=== PATIENT | male | born 1995 | race Caucasian/White ===

== ENCOUNTER 2016-11-26 11:57 | Emergency (ER) | payer BC ==
[2016-11-26 12:22] VITALS: BP 139/74
--- NOTE | 2016-11-26 12:41 | UC ---
UC General HPI - HPI Summary HPI Summary: patient has had 1 day of thraot pain, and general fatigue and body aches. denies fever, upset stomach present as well. - History of Current Complaint Chief Complaint: UCGeneralIllness Stated Complaint: SORE THROAT BODYACHES Time Seen by Provider: 11/26/16 12:24 Hx Obtained From: Patient Onset/Duration: Sudden Onset, Lasting Days - 2 Timing: Constant Onset Severity: Mild Current Severity: Moderate Associated Signs & Symptoms: Positive: Headache - Allergy/Home Medications Allergies/Adverse Reactions: Allergies Allergy/AdvReac Type Severity Reaction Status Date / Time Amoxicillin Allergy See Comment Verified 11/26/16 12:23 Lactose Intolerance (GI) Allergy GI Upset Verified 11/26/16 12:23 bees Allergy Hives Uncoded 11/26/16 12:23 PMH/Surg Hx/FS Hx/Imm Hx Previously Healthy: Yes Endocrine History: Other - obesity Other Endocrine History: obesity - Surgical History Surgical History: Yes Surgery Procedure, Year, and Place: T&A, 1999 - Family History Known Family History: Positive: None Negative: Cardiac Disease, Hypertension - Social History Alcohol Use: Weekly Substance Use Type: None Smoking Status (MU): Heavy Every Day Tobacco Smoker Type: Cigarettes, eCigarettes Amount Used/How Often: 1/4-1/2 ppd and ecig several times each day Length of Time of Smoking/Using Tobacco: started at age 17 Have You Smoked in the Last Year: Yes Household Exposure Type: Cigarettes - Immunization History Most Recent Influenza Vaccination: Not the 2014/2015 Season Vaccination Up to Date: Yes Review of Systems Constitutional: Fatigue Skin: Negative Eyes: Negative ENT: Sore Throat Respiratory: Negative Cardiovascular: Negative Gastrointestinal: Other - Upset stomach Genitourinary: Negative Motor: Negative Musculoskeletal: Myalgia Neurological: Headache Psychological: Negative All Other Systems Reviewed And Are Negative: Yes Physical Exam Triage Information Reviewed: Yes Appearance: Well-Nourished, Ill-Appearing, Pain Distress Vital Signs: Initial Vital Signs Temp 99.2 F 11/26/16 12:17 Pulse 108 11/26/16 12:17 Resp 16 11/26/16 12:17 BP 139/74 11/26/16 12:17 Pulse Ox 100 11/26/16 12:17 Vital Signs Reviewed: Yes Eye Exam: Normal Eyes: Positive: Conjunctiva Clear ENT: Positive: Pharyngeal erythema, Tonsillar swelling Dental Exam: Normal Neck exam: Normal Neck: Positive: Supple, Nontender, Enlarged Nodes @ - bilteral tonsillar Respiratory Exam: Normal Respiratory: Positive: Chest non-tender, Lungs clear, Normal breath sounds Cardiovascular Exam: Normal Cardiovascular: Positive: RRR, No Murmur, Pulses Normal Abdominal Exam: Normal Abdomen Description: Positive: Nontender, No Organomegaly, Soft Bowel Sounds: Positive: Present Musculoskeletal Exam: Normal Musculoskeletal: Positive: Strength Intact, ROM Intact, No Edema Neurological Exam: Normal Neurological: Positive: Alert, Muscle Tone Normal Psychological Exam: Normal Skin Exam: Normal - +3, tonsillar exudate noted Course/Dx - Course Course Of Treatment: hx obtained, exam performed, meds reviewed, treated for tonsillitis - Differential Dx - Multi-Symptom Provider Diagnoses: tonsillitis, viral. myalgia Discharge - Discharge Plan Condition: Stable Disposition: HOME Patient Education Materials: Tonsillitis (ED) Additional Instructions: 1. take the prednisone in the morning. 2. Ibuprofen for pain and fever 3. Increase fluid intake and preform salt water gargles to reduce the irritation on the throat 4. You need lots of rest to let the body heal. 5. Follow up with any increase in symtpoms
== END 2016-11-26 12:56 | disposition home or self-care (01) ==
LOC: UCCORT 11:57
DX: Z72.0 Tobacco use (principal); J03.80 Acute tonsillitis due to other specified organisms; B97.89 Other viral agents as the cause of diseases classified elsewhere; M79.1 Myalgia
CPT/HCPCS: 87651; 99212; G0463

== ENCOUNTER 2017-01-05 13:31 | Emergency (ER) | payer BC ==
[2017-01-05 14:46] VITALS: BP 100/52
--- NOTE | 2017-01-05 15:17 | UC ---
Throat Pain/Nasal Jerome HPI - HPI Summary HPI Summary: Patient has had sore throat, and n[place]ase[place] for the past few days. some muscle aches as well. - History of Current Complaint Chief Complaint: UCRespiratory Stated Complaint: SORE THROAT/BODY ACHES Time Seen by Provider: 01/05/17 15:01 Hx Obtained From: Patient Onset/Duration: Sudden Onset, Lasting Days Severity: Moderate Cough: None Associated Signs & Symptoms: Positive: Hoarseness - Allergies/Home Medications Allergies/Adverse Reactions: Allergies Allergy/AdvReac Type Severity Reaction Status Date / Time Amoxicillin Allergy See Comment Verified 01/05/17 14:36 Lactose Intolerance (GI) Allergy GI Upset Verified 01/05/17 14:36 bees Allergy Hives Uncoded 01/05/17 14:36 Home Medications: Home Medications Acetaminophen W/ Dm [Daytime Cold Medicine] 1 liq PO PRN 01/05/17 [History] PMH/Surg Hx/FS Hx/Imm Hx Previously Healthy: Yes - Surgical History Surgical History: Yes Surgery Procedure, Year, and Place: &A, 1999 - Family History Known Family History: Positive: None Negative: Cardiac Disease, Hypertension - Social History Alcohol Use: Occasionally Substance Use Type: Marijuana Smoking Status (MU): Current Some Day Smoker Type: eCigarettes Amount Used/How Often: 1/4-1/2 ppd and ecig several times each day Length of Time of Smoking/Using Tobacco: started at age 17 Have You Smoked in the Last Year: Yes Household Exposure Type: Cigarettes - Immunization History Most Recent Influenza Vaccination: Not the 2014/2015 Season Vaccination Up to Date: Yes Review of Systems Constitutional: Negative Skin: Negative Eyes: Negative ENT: Sore Throat, Ear Ache Respiratory: Cough Cardiovascular: Negative Gastrointestinal: Negative Genitourinary: Negative Motor: Negative Neurovascular: Negative Musculoskeletal: Myalgia Neurological: Headache Psychological: Negative All Other Systems Reviewed And Are Negative: Yes Physical Exam Triage Information Reviewed: Yes Appearance: Well-Nourished, Ill-Appearing, Pain Distress Vital Signs: Initial Vital Signs Temp 98.5 F 01/05/17 14:37 Pulse 85 01/05/17 14:37 Resp 16 01/05/17 14:37 BP 100/52 01/05/17 14:37 Pulse Ox 99 01/05/17 14:37 Vital Signs Reviewed: Yes Eye Exam: Normal ENT: Positive: Hearing grossly normal, Pharynx normal, TMs normal Dental Exam: Normal Neck exam: Normal Neck: Positive: Supple, Nontender, No Lymphadenopathy Respiratory Exam: Normal Respiratory: Positive: Chest non-tender, Lungs clear, Normal breath sounds Cardiovascular Exam: Normal Cardiovascular: Positive: RRR, No Murmur, Pulses Normal Abdominal Exam: Normal Abdomen Description: Positive: Nontender, No Organomegaly, Soft Bowel Sounds: Positive: Present Musculoskeletal Exam: Normal Musculoskeletal: Positive: Strength Intact, ROM Intact, No Edema Neurological Exam: Normal Neurological: Positive: Alert, Muscle Tone Normal Psychological Exam: Normal Skin Exam: Normal Throat Pain/Nasal Course/Dx - Course Course Of Treatment: hx obtained, exam performed ,meds reviewed, rapid strep negative. treated for viral pharyngitis - Differential Dx/Diagnosis Differential Diagnosis/HQI/PQRI: Influenza, Laryngitis, Pharyngitis, Sinusitis Provider Diagnoses: pharyngitis. nausea Discharge - Discharge Plan Condition: Stable Disposition: HOME Prescriptions: predniSONE TAB* [Deltasone TAB*] 40 mg PO DAILY #14 tab Patient Education Materials: Pharyngitis (ED) Additional Instructions: 1. take the medication as prescribed. 2. Increasd fluid intake and get plenty of rest.
== END 2017-01-05 15:30 | disposition home or self-care (01) ==
LOC: UCCORT 13:31
DX: J02.9 Acute pharyngitis, unspecified (principal); R11.0 Nausea; Z88.0 Allergy status to penicillin; Z91.030 Bee allergy status; F12.90 Cannabis use, unspecified, uncomplicated; Z72.0 Tobacco use
CPT/HCPCS: 87651; 99212; G0463

== ENCOUNTER 2017-06-21 09:13 | Emergency (ER) | payer BC ==
[2017-06-21 10:12] VITALS: BP 127/78
--- NOTE | 2017-06-21 11:44 | UC ---
FLU HPI - HPI Summary HPI Summary: Pt c/o generalized malaise, photosensitivity, YAO, PND, cough X 3 days. Pt denies hx of migraines. - History of Current Complaint Chief Complaint: UCGeneralIllness Stated Complaint: FLU SYMPTOMS Time Seen by Provider: 06/21/17 11:16 Hx Obtained From: Patient Onset/Duration: Gradual Onset, Lasting Days Severity Currently: Mild Severity Initially: Mild Pain Intensity: 3 Associated Signs & Symptoms: Positive: Myalgia, Cough, Headache Related Hx: Possible Flu/Infectious Exposure - Allergy/Home Medications Allergies/Adverse Reactions: Allergies Allergy/AdvReac Type Severity Reaction Status Date / Time amoxicillin Allergy Difficulty Verified 06/21/17 10:08 Breathing/Wheezing bee pollen Allergy Hives Verified 06/21/17 10:08 bee venom protein (honey bee) Allergy Hives Verified 06/21/17 10:08 lactose Allergy GI Upset Verified 06/21/17 10:08 Home Medications: Home Medications Methylphenidate ER TAB* [Concerta ER TAB*] 36 mg PO DAILY 06/21/17 [History Confirmed 06/21/17] PMH/Surg Hx/FS Hx/Imm Hx Previously Healthy: Yes - Surgical History Surgical History: Yes Surgery Procedure, Year, and Place: T&A, 1999 - Family History Known Family History: Positive: None Negative: Cardiac Disease, Hypertension - Social History Occupation: Employed Part-time, Student Lives: Dormitory/Roommates Alcohol Use: Occasionally Substance Use Type: None Smoking Status (MU): Current Some Day Smoker Type: eCigarettes Amount Used/How Often: 1/4-1/2 ppd and ecig several times each day Length of Time of Smoking/Using Tobacco: started at age 17 Have You Smoked in the Last Year: Yes Household Exposure Type: Cigarettes - Immunization History Most Recent Influenza Vaccination: Not the Season Vaccination Up to Date: Yes Review of Systems Constitutional: Fatigue Skin: Negative Eyes: Photophobia ENT: Sinus Congestion Respiratory: Cough Cardiovascular: Negative Gastrointestinal: Negative Genitourinary: Negative Motor: Negative Neurovascular: Negative Musculoskeletal: Myalgia Neurological: Headache Psychological: Negative Is Patient Immunocompromised?: No All Other Systems Reviewed And Are Negative: Yes Physical Exam Triage Information Reviewed: Yes Appearance: Well-Appearing Vital Signs: Initial Vital Signs Temp 99 F 06/21/17 10:02 Pulse 82 06/21/17 10:02 Resp 16 06/21/17 10:02 BP 127/78 06/21/17 10:02 Pulse Ox 98 06/21/17 10:02 Vital Signs Reviewed: Yes Eye Exam: Normal ENT Exam: Normal Dental Exam: Normal Neck exam: Normal Respiratory Exam: Normal Cardiovascular Exam: Normal Musculoskeletal Exam: Normal Neurological Exam: Normal Psychological Exam: Normal Skin Exam: Normal Diagnostics - Laboratory Diagnostic Studies Completed/Ordered: RApid flu negative Flu Course/Dx - Differential Dx/Diagnosis Differential Diagnosis/HQI/PQRI: Bronchitis, Influenza, Upper Respiratory Infection Provider Diagnoses: viral syndrome. YAO Discharge - Discharge Plan Condition: Stable Disposition: HOME Patient Education Materials: Viral Syndrome (ED) Referrals: [facility] [Outside] - If Needed No Primary Care Phys,NOPCP [Primary Care Provider] -
== END 2017-06-21 12:10 | disposition home or self-care (01) ==
LOC: UCCORT 09:13
DX: B34.9 Viral infection, unspecified (principal); R51 Headache; F17.210 Nicotine dependence, cigarettes, uncomplicated
CPT/HCPCS: 87502; 99211; G0463

== ENCOUNTER 2019-03-16 16:10 | Emergency (ER) | payer BC ==
[2019-03-16 16:36] VITALS: BP 137/82
--- NOTE | 2019-03-16 17:15 | UC ---
Eye Complaint HPI - HPI Summary HPI Summary: 24 year old male with no PMH presents with right eye swelling, drainage, redness. x 2-3 days. + purulent drainage this AM with "eye swollen shut"' NO FB sensation, no vision changes. Notes past few days had cold symptoms with fever ~ 3 days ago, none since. no other complaints other than eye currently. - History of Current Complaint Chief Complaint: UCGeneralIllness Stated Complaint: ST,RT EYE COMPLAINT Time Seen by Provider: 03/16/19 17:13 Hx Obtained From: Patient Onset/Duration: Sudden Onset, Lasting Days Timing: Constant Severity Initially: Mild Severity Currently: Mild Pain Intensity: 1 Pain Scale Used: 0-10 Numeric Location of Injury: Conjunctiva Aggravating Factor(s): Nothing Alleviating Factor(s): Nothing Associated Signs And Symptoms: Positive: Drainage (Purulent). Negative: Vision Impairment Bilateral, Vision Impairment Right, Vision Impairment Left, Fever - Allergies/Home Medications Allergies/Adverse Reactions: Allergies Allergy/AdvReac Type Severity Reaction Status Date / Time Penicillins Allergy Unknown Rash Verified 03/18/19 11:31 amoxicillin Allergy Difficulty Verified 03/18/19 11:31 Breathing/Wheezing bee pollen Allergy Hives Verified 03/18/19 11:31 bee venom protein (honey bee) Allergy Hives Verified 03/18/19 11:31 lactose Allergy GI Upset Verified 03/18/19 11:31 Home Medications: Home Medications D-Methorphan/PE/Acetaminophen [Vicks Dayquil Liquicaps] 1 cap PO Q6HR PRN [History] PMH/Surg Hx/FS Hx/Imm Hx Previously Healthy: Yes - Surgical History Surgical History: Yes Surgery Procedure, Year, and Place: T&A, 1999 - Family History Known Family History: Positive: None, Non-Contributory Negative: Cardiac Disease, Hypertension - Social History Alcohol Use: Occasionally Substance Use Type: Marijuana Substance Use Comment - Amount & Last Used: OCCASIONAL Smoking Status (MU): Current Some Day Smoker Type: eCigarettes Amount Used/How Often: 1PER DAY Length of Time of Smoking/Using Tobacco: started at age 17 Have You Smoked in the Last Year: Yes Household Exposure Type: Cigarettes - Immunization History Most Recent Influenza Vaccination: Not the Season Vaccination Up to Date: Yes Review of Systems All Other Systems Reviewed And Are Negative: Yes Constitutional: Negative: Fever, Chills, Fatigue Eyes: Positive: Drainage, Eye Redness. Negative: Blurred Vision, Photophobia ENT: Positive: Negative Psychological: Positive: Negative Is Patient Immunocompromised?: No Physical Exam Triage Information Reviewed: Yes Appearance: Well-Appearing, No Pain Distress, Well-Nourished Vital Signs: Initial Vital Signs Temp 97.5 F 03/16/19 16:27 Pulse 79 03/16/19 16:27 Resp 16 03/16/19 16:27 BP 137/82 03/16/19 16:27 Pulse Ox 99 03/16/19 16:27 Vital Signs Reviewed: Yes Eyes: Positive: Conjunctiva Inflamed, Discharge - right eye with mild purulent discharge, full EMOI, PERRLA without pain, no TTP periorbital ENT: Positive: Hearing grossly normal, Pharynx normal, TMs normal, Uvula midline. Negative: Tonsillar swelling, Tonsillar exudate, Sinus tenderness Neck: Positive: Supple, Nontender, No Lymphadenopathy Psychological Exam: Normal Skin Exam: Normal Skin: Positive: Other - no edema, no erythema. Eye Complaint Course/Dx - Course Course Of Treatment: Conjunctivitis: - Ciprofloxacin eye drops: one drop in right eye while awake every 4 hours until symptom free x 24 hours - Good hygiene- wash hands after touching eye, change pillow case/ washcloth frequently. - Motrin /tylenol as needed for pain - Return with decreased vision, increased symptoms, pain - likely viral upper respiratory tract infections. Treat symptoms with over the counter medications - Differential Dx/Diagnosis Differential Diagnosis/HQI/PQRI: Conjunctivitis Provider Diagnosis: Conjunctivitis Discharge ED - Sign-Out/Discharge Documenting (check all that apply): Patient Departure All imaging exams completed and their final reports reviewed: No Studies - Discharge Plan Condition: Good Disposition: HOME Prescriptions: Ciprofloxacin 0.3% OPTH.TIMO* [Cipro 0.3% Opth*] 1 drop LEFT EYE Q4HR #1 btl Patient Education Materials: Conjunctivitis (ED) Referrals: No Primary Care Phys,NOPCP [Primary Care Provider] - Additional Instructions: Conjunctivitis: - Ciprofloxacin eye drops: one drop in right eye while awake every 4 hours until symptom free x 24 hours - Good hygiene- wash hands after touching eye, change pillow case/ washcloth frequently. - Motrin /tylenol as needed for pain - Return with decreased vision, increased symptoms, pain - likely viral upper respiratory tract infections. Treat symptoms with over the counter medications - Billing Disposition and Condition Condition: GOOD Disposition: Home
== END 2019-03-16 17:48 | disposition home or self-care (01) ==
LOC: UCCORT 16:10
DX: H10.31 Unspecified acute conjunctivitis, right eye (principal); Z88.0 Allergy status to penicillin; Z91.030 Bee allergy status; Z91.011 Allergy to milk products; F17.290 Nicotine dependence, other tobacco product, uncomplicated
CPT/HCPCS: 99212; G0463

== ENCOUNTER 2019-03-18 11:06 | Emergency (ER) | payer BC ==
[2019-03-18 11:31] VITALS: BP 148/76
--- NOTE | 2019-03-18 11:59 | UC ---
Throat Pain/Nasal Jerome HPI - HPI Summary HPI Summary: 24-year-old male presents with complaints of progressively worsening sore throat , nasal congestion, sinus pressure, and occasionally productive cough with some blood-tinged sputum. States approximately one week ago his symptoms started with general malaise, chills, and body aches. The next day developed a sore throat. States 2 days later he started getting the nasal congestion and sinus pressure. He was then evaluated in this facility on 03/16/2019 and was treated for conjunctivitis and recommended symptomatic treatment for his other symptoms. Denies fever, chills, ear pain, dysphagia, chest pain, or shortness of breath. - History of Current Complaint Chief Complaint: UCGeneralIllness Stated Complaint: ST,COUGH Time Seen by Provider: 03/18/19 11:40 Hx Obtained From: Patient Pain Intensity: 6 - Allergies/Home Medications Allergies/Adverse Reactions: Allergies Allergy/AdvReac Type Severity Reaction Status Date / Time Penicillins Allergy Unknown Rash Verified 03/18/19 11:31 amoxicillin Allergy Difficulty Verified 03/18/19 11:31 Breathing/Wheezing bee pollen Allergy Hives Verified 03/18/19 11:31 bee venom protein (honey bee) Allergy Hives Verified 03/18/19 11:31 lactose Allergy GI Upset Verified 03/18/19 11:31 PMH/Surg Hx/FS Hx/Imm Hx Previously Healthy: Yes - Denies significant PMH - Surgical History Surgical History: Yes Surgery Procedure, Year, and Place: T&A, 1999 - Family History Known Family History: Positive: Non-Contributory - Social History Occupation: Student Lives: Dormitory/Roommates Alcohol Use: Occasionally Substance Use Type: Marijuana Substance Use Comment - Amount & Last Used: OCCASIONAL Smoking Status (MU): Current Some Day Smoker Type: eCigarettes Amount Used/How Often: 1PER DAY Length of Time of Smoking/Using Tobacco: started at age 17 Have You Smoked in the Last Year: Yes Household Exposure Type: Cigarettes - Immunization History Most Recent Influenza Vaccination: Not the 2015/2016 Season Vaccination Up to Date: Yes Review of Systems All Other Systems Reviewed And Are Negative: Yes Constitutional: Negative: Fever, Chills Skin: Negative: Rash Eyes: Negative: Drainage, Eye Redness ENT: Positive: Sore Throat, Nasal Discharge, Sinus Congestion, Sinus Pain/ Tenderness. Negative: Ear Ache Respiratory: Positive: Cough. Negative: Negative Cardiovascular: Negative: Chest Pain Gastrointestinal: Positive: Negative Genitourinary: Positive: Negative Musculoskeletal: Positive: Negative Neurological: Positive: Negative Is Patient Immunocompromised?: No Physical Exam - Summary Physical Exam Summary: GENERAL APPEARANCE: Well developed, well nourished, alert and cooperative, and appears to be in no acute distress. EYES: Conjunctiva clear. No drainage. EARS: External auditory canals and tympanic membranes clear, hearing grossly intact. NOSE: Moderate nasal congestion with mucosal erythema and edema. No nasal discharge. Maxillary sinus tenderness. THROAT: Pharyngeal erythema. Tonsils surgically absent. Uvula midline. NECK: Neck supple, non-tender without lymphadenopathy. CARDIAC: Normal S1 and S2. No S3, S4 or murmurs. Rhythm is regular. There is no peripheral edema, cyanosis or pallor. Extremities are warm and well perfused. Capillary refill is less than 2 seconds. Peripheral pulses intact. LUNGS: Clear to auscultation without rales, rhonchi, wheezing or diminished breath sounds. Dry nonproductive cough. ABDOMEN: Positive bowel sounds. Soft, nondistended, nontender. No guarding or rebound. No masses or hepatosplenomegally. MUSKULOSKELETAL: ROM intact to all extremities. No joint erythema or tenderness. Normal muscular development. Normal gait. SKIN: Skin normal color, texture and turgor with no lesions or eruptions. Triage Information Reviewed: Yes Vital Signs: Initial Vital Signs Temp 98.2 F 03/18/19 11:28 Pulse 72 03/18/19 11:28 Resp 18 03/18/19 11:28 BP 148/76 03/18/19 11:28 Pulse Ox 100 03/18/19 11:28 Vital Signs Reviewed: Yes Throat Pain/Nasal Course/Dx - Course Course Of Treatment: 24-year-old male presents with complaints of progressively worsening sore throat , nasal congestion, sinus pressure, and occasionally productive cough with some blood-tinged sputum. States approximately one week ago his symptoms started with general malaise, chills, and body aches. The next day developed a sore throat. States 2 days later he started getting the nasal congestion and sinus pressure. He was then evaluated in this facility on 03/16/2019 and was treated for conjunctivitis and recommended symptomatic treatment for his other symptoms. Denies fever, chills, ear pain, dysphagia, chest pain, or shortness of breath. Afebrile. Hypertensive otherwise vital signs stable. Patient had moderate nasal congestion with mucosal erythema and edema, maxillary sinus tenderness, pharyngeal erythema, surgically absent tonsils, no cervical lymphadenopathy, clear bilateral breath sounds, dry nonproductive cough, and otherwise unremarkable exam. Rapid strep test was negative. I discussed with the patient that with his progressively worsening symptoms will treat him for a sinus infection with secondary bacterial infection with doxycycline 100 mg twice a day 7 days as well as recommend symptomatic treatment at this time. He is to follow-up with his primary care provider in 5-7 days if symptoms are not improving. Anticipatory guidance and warning signs reviewed with the patient. Verbalizes understanding and agrees with plan of care. - Differential Dx/Diagnosis Differential Diagnosis/HQI/PQRI: Mononucleosis, Pharyngitis, Sinusitis, Tonsillitis, URI Provider Diagnosis: Acute sinusitis, Postnasal drip, Pharyngitis Discharge ED - Sign-Out/Discharge Documenting (check all that apply): Patient Departure All imaging exams completed and their final reports reviewed: No Studies - Discharge Plan Condition: Stable Disposition: HOME Prescriptions: Doxycycline Hyclate 100 mg PO BID #14 tablet Fluticasone NASAL SPRAY 50MCG* [Flonase NASAL SPRAY 50MCG*] 2 spray BOTH NARES DAILY #1 btl Patient Education Materials: Sinusitis (ED) Referrals: No Primary Care Phys,NOPCP [Primary Care Provider] - Additional Instructions: The rapid strep test performed in the clinic today was negative. With the progressively worsening symptoms we will start you on an antibiotic for a likely bacterial sinus infection. Start doxycycline 100 mg twice a day for 7 days. Use a saline rinse kit such as Neti Pot or NeilMed at least twice a day to help thin secretions and promote drainage of the sinuses. Use fluticasone (Flonase) nasal spray 2 sprays each nostril once daily. Take over the counter acetaminophen (Tylenol) or ibuprofen (Advil, Motrin) according to directions as needed for pain or fever. Use salt water gargles several times a day if you have a sore throat. You may also use Chloraseptic spray or Cepacol lonzenges according to directions which contain a numbing medication and can provide some temporary relief from your sore throat. Follow up with your primary care provider in 5-7 days if symptoms persist. Seek immediate medical attention in the emergency room if you have fever greater than 100.5 F despite taking acetaminophen or ibuprofen, have chest pain , difficulty breathing, are unable to swallow, or have any worsening of symptoms. - Billing Disposition and Condition Condition: STABLE Disposition: Home
== END 2019-03-18 12:28 | disposition home or self-care (01) ==
LOC: UCCORT 11:06
DX: J01.90 Acute sinusitis, unspecified (principal); R09.82 Postnasal drip; J02.9 Acute pharyngitis, unspecified; F17.210 Nicotine dependence, cigarettes, uncomplicated; Z88.0 Allergy status to penicillin; Z91.030 Bee allergy status; Z91.011 Allergy to milk products
CPT/HCPCS: 87651; 99212; G0463